=== PATIENT | female | born 1930 | race Caucasian/White ===

== ENCOUNTER 2017-02-24 06:19 | Inpatient (IN) | payer MEDICARE, MEDICAID ==
[~2017-02-24] VITALS: Ht 154.9 cm; Wt 80.7 kg
[~2017-02-24 06:19] MED LIST: ACET500T68 PO; ALIS150T PO; AMLO1CAP12 PO; CALC600T4 PO; ESTR0.3T PO; FENO145T2 PO; HYDR12.58 PO; METO100T11 PO; OMEG300C PO; TRAM50TA PO
[2017-02-24] MEDS ORDERED: IV NORMAL SALINE 1000ML BAG 1,000 ML IV ONE (06:45)
[2017-02-24 07:11] LABS: BASO # 0.1 x10^3/uL (0.0-0.2); BASO % 1 % (0-3); EOS % 3 % (0-3); HEMATOCRIT 43.9 % (36.0-47.0); HEMOGLOBIN 14.5 g/dL (12.0-15.5); LYMPH # 2.6 x10^3/uL (1.0-4.8); LYMPH % 35 % (24-48); MEAN CORPUSCULAR HEMOGLOBIN 30 pg (25-35); MEAN CORPUSCULAR HGB CONC 33 g/dL (31-37); MEAN CORPUSCULAR VOLUME 90 fL (79-100); MONO % 6 % (0-9); NEUT % 55 % (31-73); PLATELET COUNT 218 x10^3/uL (140-400); RED CELL DISTRIBUTION WIDTH 13.4 % (11.5-14.5); WHITE BLOOD COUNT 7.5 x10^3/uL (4.0-11.0)
[2017-02-24 07:28] LABS: CALCIUM 9.4 mg/dL (8.5-10.1); CREATININE 1.5 mg/dL (0.6-1.0); POTASSIUM 3.1 mmol/L (3.5-5.1)
[2017-02-24 07:34] LABS: ALBUMIN 3.7 g/dL (3.4-5.0); ALBUMIN/GLOBULIN RATIO 1.3 (1.0-1.7); ETHANOL < 10 mg/dL (0-10); MAGNESIUM 2.3 mg/dL (1.8-2.4); TOTAL BILIRUBIN 0.4 mg/dL (0.2-1.0); TOTAL PROTEIN 6.5 g/dL (6.4-8.2)
--- NOTE | 2017-02-24 07:37 | RAD ---
CT brain without contrast. History: Altered mental status, possible seizure, history of seizures CT scan of brain was done without intravenous contrast. There is no intracranial hemorrhage or subdural hematoma. Ventricles are normal in size. There is no mass or shift of the midline. There is extensive decreased density in the white matter from chronic microvascular changes. An acute CVA is not identified. There is no mass or shift of the midline. Impression: 1. Chronic white matter changes. 2. No intracranial hemorrhage or acute CVA noted. One or more of the following individualized dose reduction techniques were utilized for this examination: 1. Automated exposure control 2. Adjustment of the mA and/or kV according to patient size 3. Use of iterative reconstruction technique
[2017-02-24 07:44] LABS: INR 1.1 (0.8-1.1); PROTHROMBIN TIME PATIENT 13.1 SEC (11.7-14.0)
[2017-02-24 08:01] LABS: BILIRUBIN,URINE NEGATIVE (NEG); GLUCOSE,URINE NEGATIVE (NEG); NITRITE,URINE NEGATIVE (NEG); PH,URINE 5.5; PROTEIN,URINE NEGATIVE (NEG-TRACE); UROBILINOGEN,URINE 0.2 mg/dL (0.2 mg/dL)
[2017-02-24 08:13] LABS: BACTERIA,URINE MANY /HPF (0-FEW); RBC,URINE 0 /HPF (0-2); SQUAMOUS EPITHELIAL CELL,UR MOD /LPF
[2017-02-24 08:21] LABS: BARBITURATES NEG (NEG); BENZODIAZEPINES NEG (NEG); CANNABINOIDS NEG (NEG); COCAINE NEG (NEG); METHADONE NEG (NEG); OPIATES NEG (NEG); PHENCYCLIDINE NEG (NEG)
[2017-02-24] MEDS ORDERED: fentaNYL PF VIAL 100 MCG/2 ML VIAL IV ONE (08:30)
[2017-02-24] MEDS ORDERED: POTASSIUM CHLORIDE 20 MEQ/15 ML ORAL LIQUID. PO ONE (08:45)
[2017-02-24] MEDS ORDERED: fentaNYL PF VIAL 100 MCG/2 ML VIAL IV PRN (08:45)
[2017-02-24] MEDS ORDERED: ACETAMINOPHEN 325 MG TABLET. PO PRN (08:45)
[2017-02-24] MEDS ORDERED: ONDANSETRON PF 4 MG/2 ML VIAL. IV PRN (08:45)
[2017-02-24 09:12] VITALS: BP 137/68
--- NOTE | 2017-02-24 09:48 | PHYS DOC ---
Past Medical History Past Medical History: Arthritis, High Cholesterol, Hypertension, Hepatitis, Seizure Additional Past Medical Histor: bursitis L hip, carpal tunnel, Hepatitis A -(40 -50 yrs ago) Past Surgical History: Hysterectomy, Knee Replacement, Other Additional Past Surgical Histo: R knee surgery x2,R)salivary gland removed Alcohol Use: None Drug Use: None Adult General Chief Complaint Chief Complaint: SEIZURE HPI HPI Patient is a 87 year old female who presents with altered mental status. Patient arrives by EMS from home. Patient unable to give history due to clinical condition. Family reported that they heard a noise from her bedroom which they thought was a seizure. They found her confused and minimally responsive and called 911. Patient arrives agitated, yelling "Let me go! Let me go!" History of seizure in 2003 and does not take seizure medication. She remained in her bed with no known history of trauma. Review of Systems Review of Systems Unable to obtain due to clinical condition. Current Medications Current Medications Current Medications Medications (Trade) Dose Ordered Sig/Sunny Start Time Stop Time Status Last Admin Dose Admin Lorazepam (Ativan) 1 mg 1X ONCE 02/24/17 07:00 02/24/17 07:01 DC 02/24/17 06:21 1 MG Sodium Chloride 1,000 ml @ 1,000 mls/hr 1X ONCE 02/24/17 06:45 02/24/17 07:44 DC 02/24/17 06:45 1,000 MLS/HR Allergies Allergies Allergies Coded Allergies Type Severity Reaction Last Updated Verified No Known Drug Allergies 03/19/15 No Physical Exam Physical Exam Constitutional: Well developed, well nourished, agitated, shouting, trying to get off of gurney. HENT: Normocephalic, atraumatic, bilateral external ears normal, oropharynx moist, nose normal. Eyes: PERRLA, EOMI, conjunctiva normal, no discharge. Neck: supple, no stridor. no midline c-spine tenderness. Cardiovascular: tachycardic, regular, no murmurs, no edema. Lungs & Thorax: LCTAB, no wheezing, no respiratory distress. Abdomen: soft, nontender, nondistended. Skin: Warm, dry, no erythema, no rash. Back: No tenderness. Extremities: No tenderness, no edema. Neurologic: Alert, speaks in complete sentences but not answering questions so unable to assess orientation, moves all extremities but does not follow commands. Psychologic: agitated Current Patient Data Vital Signs Vital Signs Date Time Temp Pulse Resp B/P (MAP) Pulse Ox O2 Delivery O2 Flow Rate FiO2 02/24/17 07:32 79 18 137/62 (87) 93 Room Air 02/24/17 06:19 98.5 2.0 98.5 Lab Values Laboratory Tests Test 02/24/17 06:57 White Blood Count 7.5 x10^3/uL (4.0-11.0) Red Blood Count 4.90 x10^6/uL (3.50-5.40) Hemoglobin 14.5 g/dL (12.0-15.5) Hematocrit 43.9 % (36.0-47.0) Mean Corpuscular Volume 90 fL (79-100) Mean Corpuscular Hemoglobin 30 pg (25-35) Mean Corpuscular Hemoglobin Concent 33 g/dL (31-37) Red Cell Distribution Width 13.4 % (11.5-14.5) Platelet Count 218 x10^3/uL (140-400) Neutrophils (%) (Auto) 55 % (31-73) Lymphocytes (%) (Auto) 35 % (24-48) Monocytes (%) (Auto) 6 % (0-9) Eosinophils (%) (Auto) 3 % (0-3) Basophils (%) (Auto) 1 % (0-3) Neutrophils # (Auto) 4.1 x10^3uL (1.8-7.7) Lymphocytes # (Auto) 2.6 x10^3/uL (1.0-4.8) Monocytes # (Auto) 0.4 x10^3/uL (0.0-1.1) Eosinophils # (Auto) 0.2 x10^3/uL (0.0-0.7) Basophils # (Auto) 0.1 x10^3/uL (0.0-0.2) Prothrombin Time 13.1 SEC (11.7-14.0) Prothrombin Time INR 1.1 (0.8-1.1) PTT 25 SEC (24-38) Sodium Level 142 mmol/L (136-145) Potassium Level 3.1 mmol/L (3.5-5.1) L Chloride Level 103 mmol/L (98-107) Carbon Dioxide Level 23 mmol/L (21-32) Anion Gap 16 (6-14) H Blood Urea Nitrogen 28 mg/dL (7-20) H Creatinine 1.5 mg/dL (0.6-1.0) H Estimated GFR (Cockcroft-Gault) 33.0 BUN/Creatinine Ratio 19 (6-20) Glucose Level 166 mg/dL (70-99) H Lactic Acid Level 5.5 mmol/L (0.4-2.0) *H Calcium Level 9.4 mg/dL (8.5-10.1) Magnesium Level 2.3 mg/dL (1.8-2.4) Total Bilirubin 0.4 mg/dL (0.2-1.0) Aspartate Amino Transferase (AST) 25 U/L (15-37) Alanine Aminotransferase (ALT) 23 U/L (14-59) Alkaline Phosphatase 42 U/L (46-116) L Troponin I Quantitative < 0.017 ng/mL (0.000-0.055) XY-Cps-M-Type Natriuretic Peptide 162 pg/mL (0-449) Total Protein 6.5 g/dL (6.4-8.2) Albumin 3.7 g/dL (3.4-5.0) Albumin/Globulin Ratio 1.3 (1.0-1.7) Salicylates Level < 2.8 mg/dL (2.8-20.0) L Salicylate Last Dose Date Unknown Salicylate Last Dose Time Unknown Acetaminophen Level < 2 mcg/ml (10-30) L Acetaminophen Last Dose Date Unknown Acetaminophen Last Dose Time Unknown Ethyl Alcohol Level < 10 mg/dL (0-10) Laboratory Tests 02/24/17 06:57 Laboratory Tests 02/24/17 06:57 EKG EKG interpreted by me: NSR rate 88, no acute ST/T wave changes, NM prolonged 210 ms otherwise normal intervals, no ectopy.[] Radiology/Procedures Radiology/Procedures PROCEDURE: CT HEAD WO CONTRAST CT brain without contrast. History: Altered mental status, possible seizure, history of seizures CT scan of brain was done without intravenous contrast. There is no intracranial hemorrhage or subdural hematoma. Ventricles are normal in size. There is no mass or shift of the midline. There is extensive decreased density in the white matter from chronic microvascular changes. An acute CVA is not identified. There is no mass or shift of the midline. Impression: 1. Chronic white matter changes. 2. No intracranial hemorrhage or acute CVA noted. One or more of the following individualized dose reduction techniques were utilized for this examination: 1. Automated exposure control 2. Adjustment of the mA and/or kV according to patient size 3. Use of iterative reconstruction technique DICTATED and SIGNED BY: RAFAEL LEWIS MD DATE: 02/24/17 0732 [] Course & Med Decision Making Course & Med Decision Making Pertinent Labs and Imaging studies reviewed. (See chart for details) The patient presented with altered mental status. Initially quite agitated. Gave Ativan upon arrival and she became more calm, was able to answer questions and at that time had no neurologic deficits. Head CT showed chronic changes with no acute abnormality. Lactic acid elevated suggestive of seizure. I do think that her initial presentation is most likely postictal state. Reportedly she has history of seizure but never been diagnosed with epilepsy and not on medication. Initially tachycardic but afebrile with normal white blood cell count, heart rate improving to 80s after she became more calm. At this time does not appear to be sepsis/SIRS. We'll hold off on cultures or antibiotics at this time. Recommended admission to the hospital for further evaluation and treatment. The patient agreed with plan of care. Discussed with Dr. Bateman who agrees to admit to inpatient status on behalf of Dr. Beltrán. Patient admitted in stable condition. [] Dragon Disclaimer Dragon Disclaimer This electronic medical record was generated, in whole or in part, using a voice recognition dictation system. Departure Departure Impression: Primary Impression: Altered mental status Additional Impressions: Seizure Hypokalemia Lactic acidosis Disposition: ADMITTED INPATIENT Condition: STABLE Problem Qualifiers NORBERTO MARSH MD Feb 24, 2017 09:48
--- NOTE | 2017-02-24 10:39 | EKG ---
[facility] [address] [place] [address] Test Date: 2017-02-24 Test Time: 06:45:26 Pat Name: ALKA WEAVER Department: Room: Gender: F Clin Nurse: : 1930 Requested By: NORBERTO MARSH Order Number: [id number] Reading MD: Measurements Intervals [place] Rate: 88 P: 19 NE: 210 QRS: -9 QRSD: 90 T: 63 QT: 356 QTc: 434 Interpretive Statements SINUS RHYTHM PROLONGED NE INTERVAL LEFTWARD AXIS ABNORMAL ECG RI6.01 No previous ECG available for comparison
[2017-02-24 11:00] VITALS: BP 142/70
--- NOTE | 2017-02-24 11:19 | PDOC1 ---
History and Physical Date of Admission Date of Admission DATE: 02/24/17 TIME: 11:07 History of Present Illness History of Present Illness Patient comes in after being found down and confused by family. Patient has known history of seizures. Patient had ecchymotic area about left lip and right wrist. Patient which was somewhat combative and confused and EMS was called. Patient was transferred to the emergency room where she still had some confusion. She was found to have a high lactic acid with no evidence of infection. Findings were consistent with recurrent seizure disorder. Patient was admitted for observation and neurologic consultation. Patient also complains of leg swelling after med adjustment in the office several months ago. Patient does not know which medication this is. Patient is also taking tramadol and does have a history of taking Cymbalta as well which may have decreased her seizure threshold. On my evaluation patient is back to baseline and able to converse and answer questions appropriately. Patient was reviewed with daughter in room. Patient's overriding complaint is right knee pain and patient is requesting pain medication. Past Medical History Past Medical History Hypertension Seizure Osteoarthritis Chronic kidney disease Chronic pain left knee Hyperlipidemia Past Surgical History Past Surgical History Hysterectomy. Total right knee arthroplasty 2011 with revision. Family History Family History Mother is with history of hypertension Father is with history of heart disease. Social History Smoke: No ALCOHOL: none Current Problem List Problem List Problems Medical Problems: (1) Altered mental status Status: Acute (2) Hypokalemia Status: Acute (3) Lactic acidosis Status: Acute (4) Seizure Status: Acute Problems: Current Medications Current Medications Home meds from chart:. Lotrel's 06/01 one daily. Calcium with vitamin D 600/203 times daily. Hydrochlorothiazide 25 mg daily. Toprol-XL 100 mg daily. Premarin 0.3 mg daily. Tekturna 150 mg daily. Tramadol 50 mg every 6 hours when necessary. TriCor 145 mg daily. Current Medications Sodium Chloride 1,000 ml @ 1,000 mls/hr 1X ONCE IV Last administered on 06:45; Start 02/24/17 at 06:45; Stop 02/24/17 at 07:44; Status DC Lorazepam (Ativan) 1 mg 1X ONCE IV Last administered on 02/24/17 06:21; Start 02/24/17 at 07:00; Stop 02/24/17 at 07:01; Status DC Fentanyl Citrate (Fentanyl 2ml Vial) 25 mcg 1X ONCE IV Last administered on 08:28; Start 02/24/17 at 08:30; Stop 02/24/17 at 08:31; Status DC Ondansetron HCl (Zofran) 4 mg PRN Q8HRS PRN IV NAUSEA/VOMITING; Start 02/24/17 at 08:45; Stop 02/25/17 at 08:44 Fentanyl Citrate (Fentanyl 2ml Vial) 25 mcg PRN Q2HR PRN IV PAIN Last administered on 02/24/17 09:18; Start 02/24/17 at 08:45; Stop 02/25/17 at 08:44 Acetaminophen (Tylenol) 650 mg PRN Q4HRS PRN PO FEVER; Start 02/24/17 at 08:45 ; Stop 02/25/17 at 08:44 Potassium Chloride (KCl Oral Soln) 40 meq 1X ONCE PO ; Start 02/24/17 at 08:45 ; Stop 02/24/17 at 08:52; Status DC Acetaminophen (Tylenol) 500 mg Q6HRS PO ; Start 02/24/17 at 12:00; Status UNV Aliskiren (Tekturna) 150 mg DAILY PO ; Start 02/25/17 at 09:00; Status UNV Estrogens Conjugated (Premarin) 0.3 mg DAILY PO ; Start 02/25/17 at 09:00; Status UNV Metoprolol Succinate (Toprol Xl) 100 mg DAILY PO ; Start 02/25/17 at 09:00; Status UNV Amlodipine Besylate (Norvasc) 5 mg DAILY PO ; Start 02/25/17 at 09:00; Status UNV Fenofibrate (Lofibra) 134 mg DAILY PO ; Start 02/25/17 at 09:00; Status UNV Hydrochlorothiazide (Microzide) 12.5 mg DAILY PO ; Start 02/25/17 at 09:00; Status UNV Fish Oil (Fish Oil) 1,000 mg DAILY PO ; Start 02/25/17 at 09:00; Status UNV Oxycodone HCl (Roxicodone) 5 mg PRN Q6HRS PRN PO PAIN; Start 02/24/17 at 11:15 ; Status UNV Active Scripts Active Acetaminophen 500 Mg Tablet 1 Tab PO Q6HRS 42 Days n/a Reported Tekturna (Aliskiren Hemifumarate) 150 Mg Tablet 1 Tab PO DAILY Calcium (Calcium Carbonate) 600 Mg Tablet 600 Mg PO Hydrochlorothiazide Tablet (Hydrochlorothiazide) 12.5 Mg Tablet 25 Mg PO Fish Oil (Pine-3 Fatty Acids) 300 Mg Capsule Unknown Dose PO Tekturna (Aliskiren Hemifumarate) 150 Mg Tablet Unknown Dose PO Fenofibrate (Fenofibrate Nanocrystallized) 145 Mg Tablet 145 Mg PO Metoprolol Succinate ( Xl ) (Metoprolol Succinate) 100 Mg Tab.er.24h 100 Mg PO Amlodipine-Benazepril 10-20 Mg (Amlodipine Besylate/Benazepril) 1 Each Capsule 1 Each PO uknown dose Premarin (Estrogens, Conjugated) 0.3 Mg Tablet 0.3 Mg PO Allergies Allergies: Coded Allergies: No Known Drug Allergies (Unverified , 03/19/15) ROS Review of System Patient denies cough congestion fever chills nausea vomiting or diarrhea. She does have intermittent constipation. Patient was in usual state of health until recent suspected seizure. Patient has chronic right knee pain and current left wrist ecchymosis Musculoskeletal: Yes Other Physical Exam Physical Exam Patient is alert and oriented excellent HEENT benign except for mild ecchymosis about left lower lip. Neck: supple without JVD bruit. Heart exam: Regular rate and rhythm without murmur. Lung exam: Clear to auscultation. Abdominal exam: Soft nontender without masses. Extremities: show ecchymosis to left wrist tenderness with range of motion and palpation of right knee. Neuro exam shows no unilateral findings on my limited exam. Vitals Vitals Vital Signs Date Time Temp Pulse Resp B/P (MAP) Pulse Ox O2 Delivery O2 Flow Rate FiO2 02/24/17 10:37 Room Air 02/24/17 09:18 93 2.0 02/24/17 09:12 98.1 80 16 137/68 (91) 98.1 Labs Labs Laboratory Tests Test 02/24/17 06:57 02/24/17 07:45 White Blood Count 7.5 x10^3/uL (4.0-11.0) Red Blood Count 4.90 x10^6/uL (3.50-5.40) Hemoglobin 14.5 g/dL (12.0-15.5) Hematocrit 43.9 % (36.0-47.0) Mean Corpuscular Volume 90 fL (79-100) Mean Corpuscular Hemoglobin 30 pg (25-35) Mean Corpuscular Hemoglobin Concent 33 g/dL (31-37) Red Cell Distribution Width 13.4 % (11.5-14.5) Platelet Count 218 x10^3/uL (140-400) Neutrophils (%) (Auto) 55 % (31-73) Lymphocytes (%) (Auto) 35 % (24-48) Monocytes (%) (Auto) 6 % (0-9) Eosinophils (%) (Auto) 3 % (0-3) Basophils (%) (Auto) 1 % (0-3) Neutrophils # (Auto) 4.1 x10^3uL (1.8-7.7) Lymphocytes # (Auto) 2.6 x10^3/uL (1.0-4.8) Monocytes # (Auto) 0.4 x10^3/uL (0.0-1.1) Eosinophils # (Auto) 0.2 x10^3/uL (0.0-0.7) Basophils # (Auto) 0.1 x10^3/uL (0.0-0.2) Prothrombin Time 13.1 SEC (11.7-14.0) Prothromb Time International Ratio 1.1 (0.8-1.1) Activated Partial Thromboplast Time 25 SEC (24-38) Sodium Level 142 mmol/L (136-145) Potassium Level 3.1 mmol/L (3.5-5.1) Chloride Level 103 mmol/L (98-107) Carbon Dioxide Level 23 mmol/L (21-32) Anion Gap 16 (6-14) Blood Urea Nitrogen 28 mg/dL (7-20) Creatinine 1.5 mg/dL (0.6-1.0) Estimated GFR (Cockcroft-Gault) 33.0 BUN/Creatinine Ratio 19 (6-20) Glucose Level 166 mg/dL (70-99) Lactic Acid Level 5.5 mmol/L (0.4-2.0) Calcium Level 9.4 mg/dL (8.5-10.1) Magnesium Level 2.3 mg/dL (1.8-2.4) Total Bilirubin 0.4 mg/dL (0.2-1.0) Aspartate Amino Transf (AST/SGOT) 25 U/L (15-37) Alanine Aminotransferase (ALT/SGPT) 23 U/L (14-59) Alkaline Phosphatase 42 U/L (46-116) Troponin I Quantitative < 0.017 ng/mL (0.000-0.055) PX-Lct-Z-Type Natriuretic Peptide 162 pg/mL (0-449) Total Protein 6.5 g/dL (6.4-8.2) Albumin 3.7 g/dL (3.4-5.0) Albumin/Globulin Ratio 1.3 (1.0-1.7) Salicylates Level < 2.8 mg/dL (2.8-20.0) Salicylate Last Dose Date Unknown Salicylate Last Dose Time Unknown Acetaminophen Level < 2 mcg/ml (10-30) Acetaminophen Last Dose Date Unknown Acetaminophen Last Dose Time Unknown Ethyl Alcohol Level < 10 mg/dL (0-10) Urine Collection Type U cath Urine Color Yellow Urine Clarity Clear Urine pH 5.5 Urine Specific [place] 1.020 Urine Protein Negative mg/dL (NEG-TRACE) Urine Glucose (UA) Negative mg/dL (NEG) Urine Ketones (Stick) Negative mg/dL (NEG) Urine Blood Negative (NEG) Urine Nitrite Negative (NEG) Urine Bilirubin Negative (NEG) Urine Urobilinogen Dipstick 0.2 mg/dL (0.2 mg/dL) Urine Leukocyte Esterase Negative (NEG) Urine RBC 0 /HPF (0-2) Urine WBC 1-4 /HPF (0-4) Urine Squamous Epithelial Cells Mod /LPF Urine Bacteria Many /HPF (0-FEW) Urine Hyaline Casts Moderate /HPF Urine Opiates Screen Neg (NEG) Urine Methadone Screen Neg (NEG) Urine Barbiturates Neg (NEG) Urine Phencyclidine Screen Neg (NEG) Urine Amphetamine/Methamphetamine Neg (NEG) Urine Benzodiazepines Screen Neg (NEG) Urine Cocaine Screen Neg (NEG) Urine Cannabinoids Screen Neg (NEG) Urine Ethyl Alcohol Neg (NEG) Laboratory Tests Test 02/24/17 06:57 02/24/17 07:45 White Blood Count 7.5 x10^3/uL (4.0-11.0) Red Blood Count 4.90 x10^6/uL (3.50-5.40) Hemoglobin 14.5 g/dL (12.0-15.5) Hematocrit 43.9 % (36.0-47.0) Mean Corpuscular Volume 90 fL (79-100) Mean Corpuscular Hemoglobin 30 pg (25-35) Mean Corpuscular Hemoglobin Concent 33 g/dL (31-37) Red Cell Distribution Width 13.4 % (11.5-14.5) Platelet Count 218 x10^3/uL (140-400) Neutrophils (%) (Auto) 55 % (31-73) Lymphocytes (%) (Auto) 35 % (24-48) Monocytes (%) (Auto) 6 % (0-9) Eosinophils (%) (Auto) 3 % (0-3) Basophils (%) (Auto) 1 % (0-3) Neutrophils # (Auto) 4.1 x10^3uL (1.8-7.7) Lymphocytes # (Auto) 2.6 x10^3/uL (1.0-4.8) Monocytes # (Auto) 0.4 x10^3/uL (0.0-1.1) Eosinophils # (Auto) 0.2 x10^3/uL (0.0-0.7) Basophils # (Auto) 0.1 x10^3/uL (0.0-0.2) Prothrombin Time 13.1 SEC (11.7-14.0) Prothromb Time International Ratio 1.1 (0.8-1.1) Activated Partial Thromboplast Time 25 SEC (24-38) Sodium Level 142 mmol/L (136-145) Potassium Level 3.1 mmol/L (3.5-5.1) Chloride Level 103 mmol/L (98-107) Carbon Dioxide Level 23 mmol/L (21-32) Anion Gap 16 (6-14) Blood Urea Nitrogen 28 mg/dL (7-20) Creatinine 1.5 mg/dL (0.6-1.0) Estimated GFR (Cockcroft-Gault) 33.0 BUN/Creatinine Ratio 19 (6-20) Glucose Level 166 mg/dL (70-99) Lactic Acid Level 5.5 mmol/L (0.4-2.0) Calcium Level 9.4 mg/dL (8.5-10.1) Magnesium Level 2.3 mg/dL (1.8-2.4) Total Bilirubin 0.4 mg/dL (0.2-1.0) Aspartate Amino Transf (AST/SGOT) 25 U/L (15-37) Alanine Aminotransferase (ALT/SGPT) 23 U/L (14-59) Alkaline Phosphatase 42 U/L (46-116) Troponin I Quantitative < 0.017 ng/mL (0.000-0.055) AX-Xog-L-Type Natriuretic Peptide 162 pg/mL (0-449) Total Protein 6.5 g/dL (6.4-8.2) Albumin 3.7 g/dL (3.4-5.0) Albumin/Globulin Ratio 1.3 (1.0-1.7) Salicylates Level < 2.8 mg/dL (2.8-20.0) Salicylate Last Dose Date Unknown Salicylate Last Dose Time Unknown Acetaminophen Level < 2 mcg/ml (10-30) Acetaminophen Last Dose Date Unknown Acetaminophen Last Dose Time Unknown Ethyl Alcohol Level < 10 mg/dL (0-10) Urine Collection Type U cath Urine Color Yellow Urine Clarity Clear Urine pH 5.5 Urine Specific [place] 1.020 Urine Protein Negative mg/dL (NEG-TRACE) Urine Glucose (UA) Negative mg/dL (NEG) Urine Ketones (Stick) Negative mg/dL (NEG) Urine Blood Negative (NEG) Urine Nitrite Negative (NEG) Urine Bilirubin Negative (NEG) Urine Urobilinogen Dipstick 0.2 mg/dL (0.2 mg/dL) Urine Leukocyte Esterase Negative (NEG) Urine RBC 0 /HPF (0-2) Urine WBC 1-4 /HPF (0-4) Urine Squamous Epithelial Cells Mod /LPF Urine Bacteria Many /HPF (0-FEW) Urine Hyaline Casts Moderate /HPF Urine Opiates Screen Neg (NEG) Urine Methadone Screen Neg (NEG) Urine Barbiturates Neg (NEG) Urine Phencyclidine Screen Neg (NEG) Urine Amphetamine/Methamphetamine Neg (NEG) Urine Benzodiazepines Screen Neg (NEG) Urine Cocaine Screen Neg (NEG) Urine Cannabinoids Screen Neg (NEG) Urine Ethyl Alcohol Neg (NEG) VTE Prophylaxis Ordered VTE Prophylaxis Devices: Yes VTE Pharmacological Prophylaxi: Yes Assessment/Plan Assessment/Plan Assessment Primary recurrent seizure. Post ictal encephalopathy/delirium Severe hypertension Osteoarthritis with chronic pain History of chronic kidney disease Hyperlipidemia Plan Proceed with neurologic consultation. Proceed with PT and OT modalities. Discontinue tramadol and start low-dose oxycodone Decrease dose of Norvasc due to leg swelling Discontinue lisinopril/benazepril while on DANIELLE Hilario MD Feb 24, 2017 11:19
[2017-02-24] MEDS ORDERED: AMLO1CAP15 PO (11:23)
[2017-02-24] MEDS: ALISKIREN HEMIFUMARATE 150 MG TABLET. PO SCH (12:12)
[2017-02-24] MEDS: oxyCODONE IR 5 MG TABLET PO PRN ×2 (12:12→23:13)
[2017-02-24] MEDS: OMEGA-3 FATTY ACIDS/FISH OIL 1,000 MG CAPSULE. PO SCH (12:13)
[2017-02-24] MEDS: amLODIPine BESYLATE 5 MG TABLET PO SCH (12:13)
[2017-02-24] MEDS: ACETAMINOPHEN 500 MG TABLET PO SCH ×3 (12:14→23:16)
[2017-02-24] MEDS: hydroCHLOROthiazide 12.5 MG CAPSULE PO SCH (12:14)
[2017-02-24] MEDS: METOPROLOL SUCC 24HR ER 100 MG TAB.ER.24H. PO SCH (12:14)
[2017-02-24] MEDS: FENOFIBRATE,MICRONIZED 134 MG CAPSULE PO SCH (12:14)
[2017-02-24] MEDS: ESTROGENS, CONJUGATED 0.3 MG TABLET PO SCH (12:14)
[2017-02-24] MEDS: ENOXAPARIN 30 MG/0.3 ML SYRINGE. SQ SCH (12:15)
[2017-02-24 15:00] VITALS: BP 147/72
[2017-02-24] MEDS: levETIRAcetam 500 MG TABLET PO SCH (15:51)
--- NOTE | 2017-02-24 16:31 | PDOC2 ---
CONSULT Date of Consult Date of Consult DATE: 02/24/17 TIME: 16:28 Reason for Consult Reason for Consult: Seizures History of Present Illness Reason for Visit: This patient is a 87-year-old female who presented to emergency room with episodes of generalized jerking in her extremities, tongue bite. Patient's family at bedside patient's son report she was having jerky activity in all extremities shouldn't had tongue bite, patient was confused. Patient does not have any loss of bladder or bowel control. Patient does have a history of seizures before. Patient was tapered off of the seizure medication. Patient does not have all the details. And was also taking tramadol for pains. Recurrent generalized seizures. CT scan on the brain showed chronic white matter changes. There was no intracranial hemorrhage. There was no acute process noted. Social History No ALCOHOL: none Current Problem List Problem List Problems Medical Problems: (1) Altered mental status Status: Acute (2) Hypokalemia Status: Acute (3) Lactic acidosis Status: Acute (4) Seizure Status: Acute Current Medications Current Medications Current Medications Sodium Chloride 1,000 ml @ 1,000 mls/hr 1X ONCE IV Last administered on 06:45; Start 02/24/17 at 06:45; Stop 02/24/17 at 07:44; Status DC Lorazepam (Ativan) 1 mg 1X ONCE IV Last administered on 02/24/17 06:21; Start 02/24/17 at 07:00; Stop 02/24/17 at 07:01; Status DC Fentanyl Citrate (Fentanyl 2ml Vial) 25 mcg 1X ONCE IV Last administered on 08:28; Start 02/24/17 at 08:30; Stop 02/24/17 at 08:31; Status DC Ondansetron HCl (Zofran) 4 mg PRN Q8HRS PRN IV NAUSEA/VOMITING; Start 02/24/17 at 08:45; Stop 02/25/17 at 08:44 Fentanyl Citrate (Fentanyl 2ml Vial) 25 mcg PRN Q2HR PRN IV PAIN Last administered on 02/24/17 09:18; Start 02/24/17 at 08:45; Stop 02/25/17 at 08:44 Acetaminophen (Tylenol) 650 mg PRN Q4HRS PRN PO FEVER; Start 02/24/17 at 08:45 ; Stop 02/25/17 at 08:44 Potassium Chloride (KCl Oral Soln) 40 meq 1X ONCE PO Last administered on 02/24 12:15; Start 02/24/17 at 08:45; Stop 02/24/17 at 08:52; Status DC Acetaminophen (Tylenol) 500 mg Q6HRS PO Last administered on 02/24/17 12:14; Start 02/24/17 at 12:00 Aliskiren (Tekturna) 150 mg DAILY PO Last administered on 02/24/17 12:12; Start 02/24/17 at 12:00 Estrogens Conjugated (Premarin) 0.3 mg DAILY PO Last administered on 02/24/17 12:14; Start 02/24/17 at 11:15 Metoprolol Succinate (Toprol Xl) 100 mg DAILY PO Last administered on 12:14; Start 02/24/17 at 11:15 Amlodipine Besylate (Norvasc) 5 mg DAILY PO Last administered on 02/24/17 12: 13; Start 02/24/17 at 11:11 Fenofibrate (Lofibra) 134 mg DAILY PO Last administered on 02/24/17 12:14; Start 02/24/17 at 11:15 Hydrochlorothiazide (Microzide) 12.5 mg DAILY PO Last administered on 12:14; Start 02/24/17 at 11:15 Fish Oil (Fish Oil) 1,000 mg DAILY PO Last administered on 02/24/17 12:13; Start 02/24/17 at 11:15 Oxycodone HCl (Roxicodone) 5 mg PRN Q6HRS PRN PO PAIN Last administered on 02/24 12:12; Start 02/24/17 at 11:15 Enoxaparin Sodium (Lovenox 30mg Syringe) 30 mg Q24H SQ Last administered on 12:15; Start 02/24/17 at 12:00 Levetiracetam (Keppra) 500 mg BID PO Last administered on 02/24/17 15:51; Start 02/24/17 at 16:00 Active Scripts Active Acetaminophen 500 Mg Tablet 1 Tab PO Q6HRS 42 Days n/a Reported Amlodipine-Benazepril 10-40 Mg (Amlodipine Besylate/Benazepril) 1 Each Capsule 1 Cap PO DAILY Tekturna (Aliskiren Hemifumarate) 150 Mg Tablet 1 Tab PO DAILY Calcium (Calcium Carbonate) 600 Mg Tablet 600 Mg PO Hydrochlorothiazide Tablet (Hydrochlorothiazide) 12.5 Mg Tablet 25 Mg PO Tekturna (Aliskiren Hemifumarate) 150 Mg Tablet Unknown Dose PO Fenofibrate (Fenofibrate Nanocrystallized) 145 Mg Tablet 145 Mg PO Metoprolol Succinate ( Xl ) (Metoprolol Succinate) 100 Mg Tab.er.24h 100 Mg PO Premarin (Estrogens, Conjugated) 0.3 Mg Tablet 0.3 Mg PO Allergies Allergies: Coded Allergies: No Known Drug Allergies (Unverified , 03/19/15) Physical Exam Physical Exam REVIEW OF SYSTEMS: Otherwise, not [id number] review of systems. PHYSICAL EXAMINATION: General appearance is in acute distress. HEENT: Normocephalic Eyes, nose, ears, and throat are unremarkable. tongue bite + Neck is supple. No lymphadenopathy. No crepitus. Cardiovascular: S1, S2, regular rate and rhythm. Pulmonary: Clear to auscultation bilaterally. Abdomen: Bowel sounds are positive. Abdomen is soft, nontender Extremities: No rash, lesions, or edema. No restriction of range of motion NEUROLOGICAL EXAMINATION: Alert Oriented to time, place and person. PERRL. EOMI. CN: no focal findings. Muscle tone: within normal. Muscle strength:good DTR: 1- 2 Plantar reflex: Flexor response bilaterally Gait: not examined in bed. Sensory exam: no abnormal findings. No obvious cerebellar signs elicited. Vitals VITALS Vital Signs Date Time Temp Pulse Resp B/P (MAP) Pulse Ox O2 Delivery O2 Flow Rate FiO2 02/24/17 15:00 98.9 76 16 147/72 (97) 99 98.9 02/24/17 13:30 Room Air 2.0 Labs Labs Laboratory Tests Test 02/24/17 06:57 02/24/17 07:45 White Blood Count 7.5 x10^3/uL (4.0-11.0) Red Blood Count 4.90 x10^6/uL (3.50-5.40) Hemoglobin 14.5 g/dL (12.0-15.5) Hematocrit 43.9 % (36.0-47.0) Mean Corpuscular Volume 90 fL (79-100) Mean Corpuscular Hemoglobin 30 pg (25-35) Mean Corpuscular Hemoglobin Concent 33 g/dL (31-37) Red Cell Distribution Width 13.4 % (11.5-14.5) Platelet Count 218 x10^3/uL (140-400) Neutrophils (%) (Auto) 55 % (31-73) Lymphocytes (%) (Auto) 35 % (24-48) Monocytes (%) (Auto) 6 % (0-9) Eosinophils (%) (Auto) 3 % (0-3) Basophils (%) (Auto) 1 % (0-3) Neutrophils # (Auto) 4.1 x10^3uL (1.8-7.7) Lymphocytes # (Auto) 2.6 x10^3/uL (1.0-4.8) Monocytes # (Auto) 0.4 x10^3/uL (0.0-1.1) Eosinophils # (Auto) 0.2 x10^3/uL (0.0-0.7) Basophils # (Auto) 0.1 x10^3/uL (0.0-0.2) Prothrombin Time 13.1 SEC (11.7-14.0) Prothromb Time International Ratio 1.1 (0.8-1.1) Activated Partial Thromboplast Time 25 SEC (24-38) Sodium Level 142 mmol/L (136-145) Potassium Level 3.1 mmol/L (3.5-5.1) Chloride Level 103 mmol/L (98-107) Carbon Dioxide Level 23 mmol/L (21-32) Anion Gap 16 (6-14) Blood Urea Nitrogen 28 mg/dL (7-20) Creatinine 1.5 mg/dL (0.6-1.0) Estimated GFR (Cockcroft-Gault) 33.0 BUN/Creatinine Ratio 19 (6-20) Glucose Level 166 mg/dL (70-99) Lactic Acid Level 5.5 mmol/L (0.4-2.0) Calcium Level 9.4 mg/dL (8.5-10.1) Magnesium Level 2.3 mg/dL (1.8-2.4) Total Bilirubin 0.4 mg/dL (0.2-1.0) Aspartate Amino Transf (AST/SGOT) 25 U/L (15-37) Alanine Aminotransferase (ALT/SGPT) 23 U/L (14-59) Alkaline Phosphatase 42 U/L (46-116) Troponin I Quantitative < 0.017 ng/mL (0.000-0.055) [id number]-Type Natriuretic Peptide 162 pg/mL (0-449) Total Protein 6.5 g/dL (6.4-8.2) Albumin 3.7 g/dL (3.4-5.0) Albumin/Globulin Ratio 1.3 (1.0-1.7) Salicylates Level < 2.8 mg/dL (2.8-20.0) Salicylate Last Dose Date Unknown Salicylate Last Dose Time Unknown Acetaminophen Level < 2 mcg/ml (10-30) Acetaminophen Last Dose Date Unknown Acetaminophen Last Dose Time Unknown Ethyl Alcohol Level < 10 mg/dL (0-10) Urine Collection Type U cath Urine Color Yellow Urine Clarity Clear Urine pH 5.5 Urine Specific Bowler 1.020 Urine Protein Negative mg/dL (NEG-TRACE) Urine Glucose (UA) Negative mg/dL (NEG) Urine Ketones (Stick) Negative mg/dL (NEG) Urine Blood Negative (NEG) Urine Nitrite Negative (NEG) Urine Bilirubin Negative (NEG) Urine Urobilinogen Dipstick 0.2 mg/dL (0.2 mg/dL) Urine Leukocyte Esterase Negative (NEG) Urine RBC 0 /HPF (0-2) Urine WBC 1-4 /HPF (0-4) Urine Squamous Epithelial Cells Mod /LPF Urine Bacteria Many /HPF (0-FEW) Urine Hyaline Casts Moderate /HPF Urine Opiates Screen Neg (NEG) Urine Methadone Screen Neg (NEG) Urine Barbiturates Neg (NEG) Urine Phencyclidine Screen Neg (NEG) Urine Amphetamine/Methamphetamine Neg (NEG) Urine Benzodiazepines Screen Neg (NEG) Urine Cocaine Screen Neg (NEG) Urine Cannabinoids Screen Neg (NEG) Urine Ethyl Alcohol Neg (NEG) Laboratory Tests Test 02/24/17 06:57 02/24/17 07:45 White Blood Count 7.5 x10^3/uL (4.0-11.0) Red Blood Count 4.90 x10^6/uL (3.50-5.40) Hemoglobin 14.5 g/dL (12.0-15.5) Hematocrit 43.9 % (36.0-47.0) Mean Corpuscular Volume 90 fL (79-100) Mean Corpuscular Hemoglobin 30 pg (25-35) Mean Corpuscular Hemoglobin Concent 33 g/dL (31-37) Red Cell Distribution Width 13.4 % (11.5-14.5) Platelet Count 218 x10^3/uL (140-400) Neutrophils (%) (Auto) 55 % (31-73) Lymphocytes (%) (Auto) 35 % (24-48) Monocytes (%) (Auto) 6 % (0-9) Eosinophils (%) (Auto) 3 % (0-3) Basophils (%) (Auto) 1 % (0-3) Neutrophils # (Auto) 4.1 x10^3uL (1.8-7.7) Lymphocytes # (Auto) 2.6 x10^3/uL (1.0-4.8) Monocytes # (Auto) 0.4 x10^3/uL (0.0-1.1) Eosinophils # (Auto) 0.2 x10^3/uL (0.0-0.7) Basophils # (Auto) 0.1 x10^3/uL (0.0-0.2) Prothrombin Time 13.1 SEC (11.7-14.0) Prothromb Time International Ratio 1.1 (0.8-1.1) Activated Partial Thromboplast Time 25 SEC (24-38) Sodium Level 142 mmol/L (136-145) Potassium Level 3.1 mmol/L (3.5-5.1) Chloride Level 103 mmol/L (98-107) Carbon Dioxide Level 23 mmol/L (21-32) Anion Gap 16 (6-14) Blood Urea Nitrogen 28 mg/dL (7-20) Creatinine 1.5 mg/dL (0.6-1.0) Estimated GFR (Cockcroft-Gault) 33.0 BUN/Creatinine Ratio 19 (6-20) Glucose Level 166 mg/dL (70-99) Lactic Acid Level 5.5 mmol/L (0.4-2.0) Calcium Level 9.4 mg/dL (8.5-10.1) Magnesium Level 2.3 mg/dL (1.8-2.4) Total Bilirubin 0.4 mg/dL (0.2-1.0) Aspartate Amino Transf (AST/SGOT) 25 U/L (15-37) Alanine Aminotransferase (ALT/SGPT) 23 U/L (14-59) Alkaline Phosphatase 42 U/L (46-116) Troponin I Quantitative < 0.017 ng/mL (0.000-0.055) EZ-[id number]-Type Natriuretic Peptide 162 pg/mL (0-449) Total Protein 6.5 g/dL (6.4-8.2) Albumin 3.7 g/dL (3.4-5.0) Albumin/Globulin Ratio 1.3 (1.0-1.7) Salicylates Level < 2.8 mg/dL (2.8-20.0) Salicylate Last Dose Date Unknown Salicylate Last Dose Time Unknown Acetaminophen Level < 2 mcg/ml (10-30) Acetaminophen Last Dose Date Unknown Acetaminophen Last Dose Time Unknown Ethyl Alcohol Level < 10 mg/dL (0-10) Urine Collection Type U cath Urine Color Yellow Urine Clarity Clear Urine pH 5.5 Urine Specific Bowler 1.020 Urine Protein Negative mg/dL (NEG-TRACE) Urine Glucose (UA) Negative mg/dL (NEG) Urine Ketones (Stick) Negative mg/dL (NEG) Urine Blood Negative (NEG) Urine Nitrite Negative (NEG) Urine Bilirubin Negative (NEG) Urine Urobilinogen Dipstick 0.2 mg/dL (0.2 mg/dL) Urine Leukocyte Esterase Negative (NEG) Urine RBC 0 /HPF (0-2) Urine WBC 1-4 /HPF (0-4) Urine Squamous Epithelial Cells Mod /LPF Urine Bacteria Many /HPF (0-FEW) Urine Hyaline Casts Moderate /HPF Urine Opiates Screen Neg (NEG) Urine Methadone Screen Neg (NEG) Urine Barbiturates Neg (NEG) Urine Phencyclidine Screen Neg (NEG) Urine Amphetamine/Methamphetamine Neg (NEG) Urine Benzodiazepines Screen Neg (NEG) Urine Cocaine Screen Neg (NEG) Urine Cannabinoids Screen Neg (NEG) Urine Ethyl Alcohol Neg (NEG) Assessment/Plan Assessment/Plan This patient is a 87-year-old female who presented to emergency room with episodes of generalized jerking in her extremities, tongue bite. Patient's family at bedside patient's son report she was having jerky activity in all extremities shouldn't had tongue bite, patient was confused. Patient does not have any loss of bladder or bowel control. Patient does have a history of seizures before. Patient was tapered off of the seizure medication. Patient does not have all the details. And was also taking tramadol for pains. Recurrent generalized seizures. CT scan on the brain showed chronic white matter changes. There was no intracranial hemorrhage. There was no acute process noted. We will check MRI brain with and without contrast to rule out any acute process. Will check for any infectious or metabolic etiology. Start Keppra 500 mg by mouth every 12 hr Seizure precautions discussed in detail. Discontinue tramadol. History of hypertension on medication History of arthritis EEG can also be done as outpatient. She will follow-up in neurology clinic. CINDY SMILEY MD Feb 24, 2017 16:31
[2017-02-24 19:59] VITALS: BP 120/66
[2017-02-24 23:54] VITALS: BP 143/56
--- NOTE | 2017-02-25 02:50 | ACF ---
Admission Forms Criteria MENTAL STATUS CHANGE Clinical Indications for Inpatient Care (Place 'X' for any and all applicable criteria): Ongoing inpatient care may be needed for 1 or more of the following(1)(2)(3)(5)( 6): [X ]I. Suspected serious etiology (eg, medical disorder, LEGAL TECHNICIAN event) of altered mental status [ ]II. Danger to self or others not manageable at lower level of care [ ]III. Grave disability (eg, inability to perform self care necessary at lower level of care) [ ]IV. Agitation or inappropriate behavior interfering with care for primary condition (eg, attempting to discontinue lines or drains prematurely, unable to cooperate with respiratory care) [ ]V. Delirium [A] [D][E] as described by 1 or more of the following(26): [ ]a) Delirium due to alcohol or sedative [F] withdrawal [ ]b) Delirium of uncertain etiology that has not responded to appropriate empiric treatment [ ]c) Delirium that prevents performance of a life-sustaining function (eg, feeding or hydrating oneself) [ ]. General contraindications and/or Inappropriate clinical situations for Observational Care in patients with Mental Status Change, when ANY ONE of the following is required: [ ]a) Prediction of prolongation of LOS based on ANY ONE of the following may be considered as a contraindication for observational care 2, 3, 4, 5, 6, 7, 8, 9, 10, 11 [ ]i) Age > 65 yrs. [ ]ii) Patient arriving by ambulance [ ]iii) Patient with high acuity [ ]iv) Patient requiring vital sign monitoring [ ]v) Patient on IV medication [ ]b) Systolic blood pressures greater than or equal to 180mmHg 3, 12 [ ]c) Patient with altered mental status including delirium and other alteration of consciousness, (3) [ ]d) Patient whose discharge disposition will be to a custodial home or rehabilitation home should not be managed in Emergency Department Observation Unit. CMS rule requires 3 days hospital stay before such placement.3,13 [ ]e) Patient with failure to thrive due to broad array of etiologies 3,16,17 [ ]f) Inability to ambulate 3,14 Extended stay beyond goal length of stay for the primary condition may be needed until ALL of the following are present(3)(5): [ ]a) Underlying medical etiology of mental status change is absent, or has been established and adequately treated [ ]b) Danger to self or others is absent or manageable at lower level of care. [ ]c) Behavior crisis management, including physical or chemical restraints, is not required or available at lower level of car [ ]d) Substance or alcohol withdrawal is absent or manageable at lower level of care. [ ]e) Behavioral symptoms (eg, agitation, somnolence, inappropriate behavior) are absent, or are manageable at lower level of care. The original [facility] content created by [facility] has been revised. The portions of the content which have been revised are identified through the use of italic text or in bold, and [facility] has neither reviewed nor approved the modified material. All other unmodified content is copyright [facility]. Please see references footnoted in the original [facility] edition 2016 Admission Criteria Met?: Yes JHON SARAH Feb 25, 2017 02:50
[2017-02-25 03:59] VITALS: BP 123/53
[2017-02-25 05:47] LABS: BASO % 1 % (0-3); EOS % 3 % (0-3); HEMATOCRIT 38.7 % (36.0-47.0); HEMOGLOBIN 13.1 g/dL (12.0-15.5); LYMPH # 2.5 x10^3/uL (1.0-4.8); LYMPH % 41 % (24-48); MEAN CORPUSCULAR HEMOGLOBIN 30 pg (25-35); MEAN CORPUSCULAR HGB CONC 34 g/dL (31-37); MEAN CORPUSCULAR VOLUME 88 fL (79-100); MONO % 9 % (0-9); NEUT % 47 % (31-73); PLATELET COUNT 204 x10^3/uL (140-400); RED BLOOD COUNT 4.42 x10^6/uL (3.50-5.40); RED CELL DISTRIBUTION WIDTH 13.4 % (11.5-14.5); WHITE BLOOD COUNT 6.1 x10^3/uL (4.0-11.0)
[2017-02-25] MEDS: ACETAMINOPHEN 500 MG TABLET PO SCH ×2 (06:00→11:47)
[2017-02-25 07:49] VITALS: BP 136/58
[2017-02-25] MEDS: ALISKIREN HEMIFUMARATE 150 MG TABLET. PO SCH (08:44)
[2017-02-25] MEDS: hydroCHLOROthiazide 12.5 MG CAPSULE PO SCH (08:44)
[2017-02-25] MEDS: ESTROGENS, CONJUGATED 0.3 MG TABLET PO SCH (08:45)
[2017-02-25] MEDS: FENOFIBRATE,MICRONIZED 134 MG CAPSULE PO SCH (08:45)
[2017-02-25] MEDS: amLODIPine BESYLATE 5 MG TABLET PO SCH (08:46)
[2017-02-25] MEDS: levETIRAcetam 500 MG TABLET PO SCH (08:46)
[2017-02-25] MEDS: METOPROLOL SUCC 24HR ER 100 MG TAB.ER.24H. PO SCH (08:46)
[2017-02-25] MEDS: OMEGA-3 FATTY ACIDS/FISH OIL 1,000 MG CAPSULE. PO SCH (08:47)
[2017-02-25 09:23] LABS: ALBUMIN 3.3 g/dL (3.4-5.0); ALBUMIN/GLOBULIN RATIO 1.5 (1.0-1.7); CALCIUM 8.1 mg/dL (8.5-10.1); CREATININE 1.4 mg/dL (0.6-1.0); GFR 35.7; TOTAL BILIRUBIN 0.5 mg/dL (0.2-1.0); TOTAL PROTEIN 5.5 g/dL (6.4-8.2)
[2017-02-25] MEDS ORDERED: OMEG1CAP6 PO (09:26)
[2017-02-25] MEDS ORDERED: LEVE500T56 PO (09:26)
[2017-02-25] MEDS ORDERED: AMLO5TAB2 PO (09:26)
[2017-02-25 10:14] VITALS: BP 123/57
[2017-02-25] MEDS: oxyCODONE IR 5 MG TABLET PO PRN ×2 (11:48→17:06)
[2017-02-25] MEDS: ENOXAPARIN 30 MG/0.3 ML SYRINGE. SQ SCH (12:00)
--- NOTE | 2017-02-25 12:03 | RAD ---
Portable AP chest. History: Altered mental status AP view was taken of the chest. Patient has not taken a deep inspiration. There are no confluent areas of infiltrate. Heart is normal in size. There is no effusion. Impression: 1. No acute infiltrates.
--- NOTE | 2017-02-25 16:15 | RAD ---
MRI Brain without contrast History: Altered mental status, history of seizures, seizure one day ago Technique: Multiplanar, multisequential noncontrast MR imaging was performed of the brain. Contrast: None Comparison: None Findings: There is motion degradation.There is no evidence of an acute infarct or cytotoxic edema. The ventricles, sulci, and cisterns are within normal limits in size and configuration. There is no significant midline shift, intra-axial mass effect, or focal abnormal extra-axial fluid collection. There is multifocal overall mild to moderate T2 and FLAIR hyperintense abnormality of the supratentorial white matter in a bilateral distribution. There is no significant hemosiderin deposition of the brain parenchyma. 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 There has been lens surgery bilaterally. There is mild patchy bilateral ethmoid air cell mucosal thickening. There is preservation of the major intracranial flow-voids at the skull base. The mastoid air cells are aerated. There is cerebellar tonsillar ectopia, projecting up to 5 to 6 mm inferior to the foramen magnum. There is no significant abnormality of the pineal gland or pituitary gland. There is preserved marrow signal of the clivus. Impression: 1. There is no evidence of a recent infarct or intracranial mass effect. There is cerebellar tonsillar ectopia. [id number] T2 and FLAIR hyperintense signal abnormality of the supratentorial white matter bilaterally is nonspecific although likely due to chronic microvascular ischemic disease in a patient of this age. Electronically signed by: Akhil Reina MD (02/25/2017 4:12 PM) [id number]
== END 2017-02-25 17:30 | disposition home or self-care (01) | DRG 101 ==
LOC: ER 06:19 → 6 SOUTH 07:42
PROVIDERS: ADMIT Family Medicine; ATTEND Family Medicine
DX: G40.409 Other generalized epilepsy and epileptic syndromes, not intractable, without status epilepticus (principal); E87.2 Acidosis; E87.6 Hypokalemia; E78.5 Hyperlipidemia, unspecified; E78.00 Pure hypercholesterolemia, unspecified; M25.562 Pain in left knee; Z96.651 Presence of right artificial knee joint; I12.9 Hypertensive chronic kidney disease with stage 1 through stage 4 chronic kidney disease, or unspecified chronic kidney disease; M19.90 Unspecified osteoarthritis, unspecified site; N18.9 Chronic kidney disease, unspecified; Z79.899 Other long term (current) drug therapy; Z82.49 Family history of ischemic heart disease and other diseases of the circulatory system; Z90.710 Acquired absence of both cervix and uterus
CPT/HCPCS: 36415; 70450; 70551; 71010; 80053; 80329; 81001; 83605; 83735; 83880; 84484; 85027; 85610; 85730; 87086; 87186; 93005; 96361; 96374; A6539; G0480; G0481; J1650; J2060; J3010; J7030; 99285-25

== ENCOUNTER 2017-03-12 09:56 | Emergency (ER) | payer MEDICARE, MEDICAID ==
[~2017-03-12] VITALS: Ht 154.9 cm; Wt 73.9 kg
[~2017-03-12 09:56] MED LIST changes: +AMLO1CAP15 PO; +AMLO5TAB2 PO; +LEVE500T56 PO; +OMEG1CAP6 PO
--- NOTE | 2017-03-12 10:15 | PHYS DOC ---
Past Medical History Past Medical History: Arthritis, High Cholesterol, Hypertension, Hepatitis, Seizure Additional Past Medical Histor: bursitis L hip, carpal tunnel, Hepatitis A -(40 -50 yrs ago) Past Surgical History: Hysterectomy, Knee Replacement, Other Additional Past Surgical Histo: R knee surgery x2,R)salivary gland removed Alcohol Use: None Drug Use: None Adult General Chief Complaint Chief Complaint: PAIN CONTROL HPI HPI Patient is a 87 year old female who presents with uncontrolled right leg pain. She states it started hurting approximately 20 days ago and she was taking tramadol and had a seizure and was hospitalized for it. She followed up with Dr. Beltrán and was given 50 tablets of 5 mg oxycodone instructed take one tablet twice a day. She states that she has been having to take more than directed and she ran out of 4 days ago and has taken Tylenol and some of her son 's oxycodone. She states the pain is constant is in the anterior aspect of her knee. She states she's had her knee replaced twice. She denies any shortness of breath fevers chills nausea or vomiting. She states that both legs are swollen this is normal for her for the last several months, but got worse overnight. Review of Systems Review of Systems Constitutional: Denies fever or chills [] Eyes: Denies change in visual acuity, redness, or eye pain [] HENT: Denies nasal congestion or sore throat [] Respiratory: Denies cough or shortness of breath [] Cardiovascular: No additional information not addressed in HPI [] GI: Denies abdominal pain, nausea, vomiting, bloody stools or diarrhea [] : Denies dysuria or hematuria [] Musculoskeletal: Denies back pain or joint pain [] Integument: Denies rash or skin lesions [] Neurologic: Denies headache, focal weakness or sensory changes [] Endocrine: Denies polyuria or polydipsia [] Allergies Allergies Allergies Coded Allergies Type Severity Reaction Last Updated Verified tramadol Adverse Reaction Intermediate seizure 03/12/17 Yes Physical Exam Physical Exam Constitutional: Well developed, well nourished, no acute distress, non-toxic appearance. [] HENT: Normocephalic, atraumatic, bilateral external ears normal, oropharynx moist, no oral exudates, nose normal. [] Eyes: PERRLA, EOMI, conjunctiva normal, no discharge. [] Neck: Normal range of motion, no tenderness, supple, no stridor. [] Cardiovascular:Heart rate regular rhythm, no murmur [] Lungs & Thorax: Bilateral breath sounds clear to auscultation [] Abdomen: Bowel sounds normal, soft, no tenderness, no masses, no pulsatile masses. [] Skin: Warm, dry, no erythema, no rash. [] Back: No tenderness, no CVA tenderness. [] Extremities: Tenderness to palpation around the right knee, no calf tenderness, 2+ bilateral lower show many edema no cyanosis, no clubbing, ROM intact. [] Neurologic: Alert and oriented X 3, normal motor function, normal sensory function, no focal deficits noted. [] Psychologic: Affect normal, judgement normal, mood normal. [] Current Patient Data Vital Signs Vital Signs Date Time Temp Pulse Resp B/P (MAP) Pulse Ox O2 Delivery O2 Flow Rate FiO2 03/12/17 11:00 68 66 03/12/17 10:00 97.9 18 187/84 (118) Room Air 97.9 Lab Values Laboratory Tests Test 03/12/17 11:05 03/12/17 11:22 Urine Collection Type Unknown Urine Color Yellow Urine Clarity Clear Urine pH 7.5 Urine Specific [place] 1.010 Urine Protein Negative mg/dL (NEG-TRACE) Urine Glucose (UA) Negative mg/dL (NEG) Urine Ketones (Stick) Negative mg/dL (NEG) Urine Blood Negative (NEG) Urine Nitrite Negative (NEG) Urine Bilirubin Negative (NEG) Urine Urobilinogen Dipstick 0.2 mg/dL (0.2 mg/dL) Urine Leukocyte Esterase Negative (NEG) Urine RBC Occ /HPF (0-2) Urine WBC 1-4 /HPF (0-4) Urine Squamous Epithelial Cells Few /LPF Urine Bacteria Few /HPF (0-FEW) White Blood Count 5.7 x10^3/uL (4.0-11.0) Red Blood Count 4.69 x10^6/uL (3.50-5.40) Hemoglobin 14.0 g/dL (12.0-15.5) Hematocrit 41.1 % (36.0-47.0) Mean Corpuscular Volume 88 fL (79-100) Mean Corpuscular Hemoglobin 30 pg (25-35) Mean Corpuscular Hemoglobin Concent 34 g/dL (31-37) Red Cell Distribution Width 13.5 % (11.5-14.5) Platelet Count 212 x10^3/uL (140-400) Neutrophils (%) (Auto) 52 % (31-73) Lymphocytes (%) (Auto) 35 % (24-48) Monocytes (%) (Auto) 9 % (0-9) Eosinophils (%) (Auto) 3 % (0-3) Basophils (%) (Auto) 1 % (0-3) Neutrophils # (Auto) 3.0 x10^3uL (1.8-7.7) Lymphocytes # (Auto) 2.0 x10^3/uL (1.0-4.8) Monocytes # (Auto) 0.5 x10^3/uL (0.0-1.1) Eosinophils # (Auto) 0.2 x10^3/uL (0.0-0.7) Basophils # (Auto) 0.1 x10^3/uL (0.0-0.2) Sodium Level 143 mmol/L (136-145) Potassium Level 4.2 mmol/L (3.5-5.1) Chloride Level 107 mmol/L (98-107) Carbon Dioxide Level 31 mmol/L (21-32) Anion Gap 5 (6-14) L Blood Urea Nitrogen 32 mg/dL (7-20) H Creatinine 1.4 mg/dL (0.6-1.0) H Estimated GFR (Cockcroft-Gault) 35.7 BUN/Creatinine Ratio 23 (6-20) H Glucose Level 109 mg/dL (70-99) H Calcium Level 8.6 mg/dL (8.5-10.1) Total Bilirubin 0.3 mg/dL (0.2-1.0) Aspartate Amino Transferase (AST) 25 U/L (15-37) Alanine Aminotransferase (ALT) 33 U/L (14-59) Alkaline Phosphatase 41 U/L (46-116) L AQ-Xfa-U-Type Natriuretic Peptide 162 pg/mL (0-449) Total Protein 6.7 g/dL (6.4-8.2) Albumin 3.7 g/dL (3.4-5.0) Albumin/Globulin Ratio 1.2 (1.0-1.7) Laboratory Tests 03/12/17 11:22 Laboratory Tests 03/12/17 11:22 EKG EKG [] Radiology/Procedures Radiology/Procedures [facility] [address] [address] IMAGING REPORT Signed PATIENT: ALKA WEAVER ACCOUNT: [id number] : 1930 LOCATION: ER AGE: 87 SEX: F EXAM STATUS: REG ER ORD. PHYSICIAN: BARBARA HASKINS MD REASON: swelling, pain PROCEDURE: VENOUS LOWER EXTREMITY RIGHT Right lower extremity venous ultrasound, 03/12/2017 : History: Right leg swelling Duplex evaluation including grayscale, color flow and spectral Doppler analysis was performed. The femoral and popliteal veins show no filling defects to suggest DVT. The visualized deep veins in the right calf are unremarkable. IMPRESSION: There is no sonographic evidence of deep vein thrombosis in the right lower extremity DICTATED and SIGNED BY: YOHANNES ZAMARRIPA MD DATE: 03/12/17 1110 CC: BARBARA HASKINS MD; Magdaleno BELTRÁN MD ~ Impressions: Right knee pain Course & Med Decision Making Course & Med Decision Making Pertinent Labs and Imaging studies reviewed. (See chart for details) I spoke with Dr. Beltrán regarding the patient's labs and ultrasound of the right lower extremity and he does not want her to have any additional narcotic pain medicines at this time it she's went through all of her pain meds sooner than expected and used her son's medication addition. She's being discharged with 5 day dose of prednisone. Patient's in stable condition at this time being discharged. Dragon Disclaimer Dragon Disclaimer This electronic medical record was generated, in whole or in part, using a voice recognition dictation system. Departure Departure Impression: Primary Impression: Knee pain Disposition: 01 HOME, SELF-CARE Referrals: Magdaleno BELTRÁN MD (PCP) Patient Instructions: Chronic Pain Additional Instructions: I spoke with Dr. Beltrán regarding your pain in your right knee and he does not want you to be on narcotic pain medicines anymore. Your being discharged with prednisone which is a medicine for inflammation and pain. You can take it as instructed for the next 4 days. If you develop fevers, worsening pain, or other concerns please return back to emergency department otherwise you need to follow -up with Dr. Beltrán for this chronic pain. Scripts Prednisone (PREDNISONE) 50 Mg Tablet 1 TAB PO DAILY, #4 TAB Prov: BARBARA HASKINS MD 03/12/17 Problem Qualifiers Primary Impression: Knee pain Chronicity: chronic Laterality: right Qualified Codes: M25.561 - Pain in right knee; G89.29 - Other chronic pain BARBARA HASKINS MD Mar 12, 2017 10:15
--- NOTE | 2017-03-12 11:13 | RAD ---
Right lower extremity venous ultrasound, 03/12/2017 : History: Right leg swelling Duplex evaluation including grayscale, color flow and spectral Doppler analysis was performed. The femoral and popliteal veins show no filling defects to suggest DVT. The visualized deep veins in the right calf are unremarkable. IMPRESSION: There is no sonographic evidence of deep vein thrombosis in the right lower extremity
[2017-03-12 11:22] LABS: BILIRUBIN,URINE NEGATIVE (NEG); GLUCOSE,URINE NEGATIVE (NEG); NITRITE,URINE NEGATIVE (NEG); PH,URINE 7.5; PROTEIN,URINE NEGATIVE (NEG-TRACE); UROBILINOGEN,URINE 0.2 mg/dL (0.2 mg/dL)
[2017-03-12 11:33] LABS: BASO # 0.1 x10^3/uL (0.0-0.2); BASO % 1 % (0-3); EOS % 3 % (0-3); HEMATOCRIT 41.1 % (36.0-47.0); LYMPH % 35 % (24-48); MEAN CORPUSCULAR HEMOGLOBIN 30 pg (25-35); MEAN CORPUSCULAR HGB CONC 34 g/dL (31-37); MEAN CORPUSCULAR VOLUME 88 fL (79-100); MONO % 9 % (0-9); NEUT % 52 % (31-73); PLATELET COUNT 212 x10^3/uL (140-400); RED BLOOD COUNT 4.69 x10^6/uL (3.50-5.40); RED CELL DISTRIBUTION WIDTH 13.5 % (11.5-14.5); WHITE BLOOD COUNT 5.7 x10^3/uL (4.0-11.0)
[2017-03-12 11:40] LABS: CALCIUM 8.6 mg/dL (8.5-10.1); CREATININE 1.4 mg/dL (0.6-1.0); GFR 35.7; POTASSIUM 4.2 mmol/L (3.5-5.1)
[2017-03-12 11:46] LABS: BACTERIA,URINE FEW /HPF (0-FEW); RBC,URINE OCC /HPF (0-2); SQUAMOUS EPITHELIAL CELL,UR FEW /LPF
[2017-03-12 11:46] LABS: ALBUMIN 3.7 g/dL (3.4-5.0); ALBUMIN/GLOBULIN RATIO 1.2 (1.0-1.7); TOTAL BILIRUBIN 0.3 mg/dL (0.2-1.0); TOTAL PROTEIN 6.7 g/dL (6.4-8.2)
[2017-03-12 13:00] VITALS: BP 154/69
[2017-03-12] MEDS ORDERED: PRED50TA PO (13:09)
[2017-03-12] MEDS ORDERED: predniSONE 10 MG TABLET PO ONE (13:15)
== END 2017-03-12 13:25 | disposition home or self-care (01) ==
LOC: ER 09:56
DX: M25.561 Pain in right knee (principal); E78.00 Pure hypercholesterolemia, unspecified; I10 Essential (primary) hypertension; M19.90 Unspecified osteoarthritis, unspecified site; Z90.710 Acquired absence of both cervix and uterus; Z96.651 Presence of right artificial knee joint; Z88.6 Allergy status to analgesic agent
CPT/HCPCS: 36415; 80053; 81001; 83880; 85027; 93971; 99285; J7512

== ENCOUNTER → 2017-03-22 | Outpatient (CLI) | payer MEDICARE, MEDICAID ==
[2017-03-12 13:00] VITALS: BP 154/69
[~2017-03-22] MED LIST changes: +PRED50TA PO
--- NOTE | 2017-03-23 12:58 | EEG ---
DATE OF SERVICE: 03/22/2017 This is EEG number [id number], performed on 03/22/2017. OBJECTIVE: The patient is an 87-year-old female with a history of 2 seizures in her life. DESCRIPTION: This is a digital study. Electrodes are placed according to the international 10-20 system. Bipolar and referential montages are available. Activation procedures typically include hyperventilation and intermittent photic stimulation. INTERPRETATION: The waking background consists of 9-10 Hz, 50-100 microvolt activity, symmetrically distributed over parietooccipital regions and reactive to eye opening. Hyperventilation and intermittent photic stimulation are noncontributory. Stage I sleep is achieved with normal electroencephalogram patterns. IMPRESSION: This electroencephalogram with the patient awake and asleep is within normal limits. There is no focal, paroxysmal, or epileptiform activity. Thank you for letting us help with the patient's care. LOI TORRES MD DR: ALEISHA/adamaris JOB#: [id number] / [id number] [facility] Deangelo [facility]
== END | disposition home or self-care (01) ==
LOC: RT 03-20 12:02
PROVIDERS: ATTEND Psychiatry & Neurology Neurology with Special Qualifications in Child Neurology
DX: G40.89 Other seizures (principal); R06.4 Hyperventilation
CPT/HCPCS: 95816

== ENCOUNTER → 2017-04-19 | Outpatient (CLI) | payer MEDICARE, MEDICAID ==
[~2017-04-19] MED LIST changes: +METO-247 PO; -METO100T11 PO
--- NOTE | 2017-04-19 16:12 | RAD ---
APPROVED REPORT Patient Location : OUT-PATIENT Indications Lower Extremity Edema : Bilateral Findings Limited grayscale images of the bilateral greater and lesser saphenous veins as well as the saphenofe moral junctions do not reveal any evidence of thrombus. The right great saphenous vein measures 4 mm and has no evidence of reflux. The right lesser saphenou s vein measures 0.5 cm and has no evidence of reflux. The left great saphenous vein measures 3 mm and has no evidence of reflux. The left lesser saphenous vein measures 0.2 cm and has no evidence of ref lux. Technically difficult study due to the patient's inability to perform a Valsalva maneuver. Critical Notification Critical Value: No <Conclusion> 1. No evidence of reflux in the bilateral greater and lesser saphenous veins.
== END | disposition home or self-care (01) ==
LOC: US 09:00
PROVIDERS: ATTEND Internal Medicine Cardiovascular Disease
DX: R60.0 Localized edema (principal)
CPT/HCPCS: 93970

== ENCOUNTER → 2017-04-30 | Outpatient (CLI) | payer MEDICARE, MEDICAID ==
--- NOTE | 2017-04-30 10:00 | CARD ---
APPROVED REPORT EXAM: Two-dimensional and M-mode echocardiogram with Doppler and color Doppler. Other Information Quality : GoodHR: 54bpm Rhythm : Bradycardia INDICATION Lower extremity edema RISK FACTORS Hypertension Hyperlipidemia 2D DIMENSIONS RVDd3.1 (2.9-3.5cm)Left Atrium(2D)3.6 (1.6-4.0cm) IVSd1.2 (0.7-1.1cm)Aortic Root(2D)2.6 (2.0-3.7cm) LVDd4.7 (3.9-5.9cm)LVOT Diameter2.4 (1.8-2.4cm) PWd1.2 (0.7-1.1cm)LVDs3.1 (2.5-4.0cm) FS (%) 34.2 %SV64.0 ml LVEF(%)63.2 (>50%) Aortic Valve AoV Peak Nikita.104.2cm/sAoV VTI29.1cm AO Peak GR.4.3mmHgLVOT Peak Nikita.98.0cm/s AO Mean GR.3mmHgAVA (VMAX)4.10cm2 Mitral Valve MV E Xmtkatko65.0cm/sMV DECEL [id number] MV A Xktcskaf180.6cm/sE/A Ratio0.9 MV A [id number] Pulmonary Valve PV Peak Dyytmnbj73.8cm/s Tricuspid Valve TR P. Ovnhyvft756me/sTR Peak Gr.31mmHg Pulmonary Vein S1 Garsvttq10.8cm/sD2 Rpkkulbc95.4cm/s PVa [id number] LEFT VENTRICLE The left ventricle is normal size. There is mild concentric left ventricular hypertrophy. The left ve ntricular systolic function is normal and the ejection fraction is within normal range. The Ejection Fraction is 60-65%. There is normal LV segmental wall motion. Transmitral Doppler flow pattern is Gra de I-abnormal relaxation pattern. RIGHT VENTRICLE The right ventricle is normal size. There is normal right ventricular wall thickness. The right ventr icular systolic function is normal. ATRIA The left atrium is mildly dilated. The right atrium size is normal. The interatrial septum is intact with no evidence for an atrial septal defect or patent foramen ovale as noted on 2-D or Doppler imagi ng. AORTIC VALVE The aortic valve is mildly sclerotic. The aortic valve is trileaflet. Doppler and Color Flow revealed trace aortic regurgitation. There is no significant aortic valvular stenosis. MITRAL VALVE Mitral annular calcification is mild. The mitral valve leaflets are moderately thickened. There is no evidence of mitral valve prolapse. There is no mitral valve stenosis. Doppler and Color Flow reveale d trace to mild mitral regurgitation. TRICUSPID VALVE Doppler and Color Flow revealed mild tricuspid regurgitation. The pulmonary artery systolic pressure is estimated at 34 mmHg. PULMONIC VALVE The pulmonary valve is not well visualized but appears to open adequately. Doppler and Color Flow rev ealed mild pulmonic valvular regurgitation. There is no pulmonic valvular stenosis by spectral Dopple r. GREAT VESSELS The aortic root is normal in size. The ascending aorta is normal in size. The IVC is normal in size a nd collapses >50% with inspiration. PERICARDIAL EFFUSION There is no evidence of significant pericardial effusion. Critical Notification Critical Value: No <Conclusion> The left ventricular systolic function is normal and the ejection fraction is within normal range. Th e Ejection Fraction is 60-65%. There is normal LV segmental wall motion. Doppler and Color Flow revealed mild tricuspid regurgitation. The pulmonary artery systolic pressure is estimated at 34 mmHg.
== END | disposition home or self-care (01) ==
LOC: ECHO 07:44
PROVIDERS: ATTEND Internal Medicine Cardiovascular Disease
DX: I07.1 Rheumatic tricuspid insufficiency (principal); I10 Essential (primary) hypertension; E78.5 Hyperlipidemia, unspecified; R60.0 Localized edema
CPT/HCPCS: 93306

== ENCOUNTER → 2018-01-10 | Outpatient (CLI) | payer MEDICARE, MEDICAID | END | disposition home or self-care (01) | LOC: KCIC MRI 10:28 | DX: M51.36 Other intervertebral disc degeneration, lumbar region (principal); M43.17 Spondylolisthesis, lumbosacral region; M25.78 Osteophyte, vertebrae; M41.86 Other forms of scoliosis, lumbar region | CPT/HCPCS: 72148 ==

== ENCOUNTER → 2018-02-04 | Outpatient (CLI) | payer MEDICARE, MEDICAID | END | disposition home or self-care (01) | LOC: RT 11:55 | DX: G47.33 Obstructive sleep apnea (adult) (pediatric) (principal); I12.9 Hypertensive chronic kidney disease with stage 1 through stage 4 chronic kidney disease, or unspecified chronic kidney disease; N18.3 Chronic kidney disease, stage 3 (moderate); E78.5 Hyperlipidemia, unspecified; E78.00 Pure hypercholesterolemia, unspecified | CPT/HCPCS: G0399 ==

== ENCOUNTER → 2018-03-11 | Outpatient (CLI) | payer MEDICARE, MEDICAID | END | disposition home or self-care (01) | LOC: PNCL 10:55 | DX: M54.5 Low back pain (principal); M79.605 Pain in left leg; I10 Essential (primary) hypertension; N28.89 Other specified disorders of kidney and ureter; M13.88 Other specified arthritis, other site | CPT/HCPCS: G0463 ==

== ENCOUNTER 2019-06-10 03:05 | Emergency (ER) | payer MEDICARE, MEDICAID ==
[~2019-06-10] VITALS: Ht 152.4 cm; Wt 72.6 kg
[~2019-06-10 03:05] MED LIST changes: -AMLO1CAP12 PO; +AMLO1CAP13 PO; -AMLO1CAP15 PO; +AMLO1CAP54 PO; +AMLO5TAB10 PO; -AMLO5TAB2 PO; -FENO145T2 PO; +FENO145T30 PO; +LISI-338 PO; +MAGN400O7 PO; +TRIA1TAB3 PO
[2019-06-10] MEDS: MORPHINE SULFATE 4 MG/ML VIAL. IV/SQ PRN ×2 (03:34→05:31)
[2019-06-10] MEDS ORDERED: ONDANSETRON PF 4 MG/2 ML VIAL. IV ONE (04:00)
--- NOTE | 2019-06-10 04:07 | PHYS DOC ---
Past Medical History Past Medical History: Hypertension, Seizure Additional Past Medical Histor: bursitis L hip, carpal tunnel, Hepatitis A -(40 -50 yrs ago) Past Surgical History: Knee Replacement Additional Past Surgical Histo: R knee surgery x2,R)salivary gland removed Alcohol Use: None Drug Use: None Adult General Chief Complaint Chief Complaint: LOWER EXTREMITY SWELLING HPI HPI Patient is a 89 year old female who presents to the ED with a chief complaint of left lower extremity tenderness. Patient has complains of nausea that started earlier tonight. Family states that they will not eat last night and I'm not sure if that is the cause of her nausea. Patient denies vomiting. Patient states that she recently had knee replacement on the right lower extremity. Patient states that she has not been able to sleep last night secondary to pain in her lower extremities. Review of Systems Review of Systems Constitutional: Denies fever or chills [] HENT: Denies nasal congestion or sore throat [] Respiratory: Denies cough or shortness of breath [] Cardiovascular: Denies chest pain GI: Pains of nausea but no vomiting : Denies dysuria or hematuria [] Musculoskeletal: Complains of pain and swelling in the left lower extremity. Neurologic: Denies headache, focal weakness or sensory changes [] All other systems were reviewed and found to be within normal limits, except as documented in this note. Current Medications Current Medications Current Medications Medications (Trade) Dose Ordered Sig/Sunny Start Time Stop Time Status Last Admin Dose Admin Morphine Sulfate (Morphine Sulfate) 4 mg PRN Q15MIN PRN 06/10/19 03:30 06/11/19 03:29 06/10/19 05:31 4 MG Ondansetron HCl (Zofran) 4 mg 1X ONCE 06/10/19 04:00 06/10/19 04:01 DC 06/10/19 03:34 4 MG Sodium Chloride 1,000 ml @ 1,000 mls/hr 1X ONCE 06/10/19 05:30 06/10/19 06:29 06/10/19 05:30 1,000 MLS/HR Allergies Allergies Allergies Coded Allergies Type Severity Reaction Last Updated Verified No Known Drug Allergies 01/24/18 No Physical Exam Physical Exam Constitutional: Well developed, well nourished, no acute distress, non-toxic appearance. [] HENT: Normocephalic, atraumatic Eyes: PERRLA, EOMI, conjunctiva normal, no discharge. [] Neck: Normal range of motion, no tenderness, supple Cardiovascular:Heart rate regular rhythm, no murmur [] Lungs & Thorax: Bilateral breath sounds clear to auscultation [] Abdomen: Bowel sounds normal, soft, no tenderness Back: No tenderness, no CVA tenderness. [] Extremities: Tenderness, swelling, and the left lower extremity. Vascularly intact Neurologic: Alert and oriented X 3 Current Patient Data Vital Signs Vital Signs Date Time Temp Pulse Resp B/P (MAP) Pulse Ox O2 Delivery O2 Flow Rate FiO2 06/10/19 05:31 18 95 06/10/19 04:29 77 164/70 (101) Room Air 06/10/19 03:20 97.9 97.9 Lab Values Laboratory Tests Test 06/10/19 03:50 06/10/19 04:20 White Blood Count 8.4 x10^3/uL (4.0-11.0) Red Blood Count 4.79 x10^6/uL (3.50-5.40) Hemoglobin 14.3 g/dL (12.0-15.5) Hematocrit 43.3 % (36.0-47.0) Mean Corpuscular Volume 90 fL (79-100) Mean Corpuscular Hemoglobin 30 pg (25-35) Mean Corpuscular Hemoglobin Concent 33 g/dL (31-37) Red Cell Distribution Width 12.9 % (11.5-14.5) Platelet Count 199 x10^3/uL (140-400) Neutrophils (%) (Auto) 62 % (31-73) Lymphocytes (%) (Auto) 28 % (24-48) Monocytes (%) (Auto) 7 % (0-9) Eosinophils (%) (Auto) 2 % (0-3) Basophils (%) (Auto) 1 % (0-3) Neutrophils # (Auto) 5.2 x10^3/uL (1.8-7.7) Lymphocytes # (Auto) 2.4 x10^3/uL (1.0-4.8) Monocytes # (Auto) 0.6 x10^3/uL (0.0-1.1) Eosinophils # (Auto) 0.2 x10^3/uL (0.0-0.7) Basophils # (Auto) 0.1 x10^3/uL (0.0-0.2) Prothrombin Time 12.8 SEC (11.7-14.0) Prothrombin Time INR 1.0 (0.8-1.1) Sodium Level 142 mmol/L (136-145) Potassium Level 4.0 mmol/L (3.5-5.1) Chloride Level 106 mmol/L (98-107) Carbon Dioxide Level 26 mmol/L (21-32) Anion Gap 10 (6-14) Blood Urea Nitrogen 68 mg/dL (7-20) H Creatinine 2.3 mg/dL (0.6-1.0) H Estimated GFR (Cockcroft-Gault) 20.1 BUN/Creatinine Ratio 30 (6-20) H Glucose Level 116 mg/dL (70-99) H Calcium Level 9.4 mg/dL (8.5-10.1) Total Bilirubin 0.3 mg/dL (0.2-1.0) Aspartate Amino Transferase (AST) 23 U/L (15-37) Alanine Aminotransferase (ALT) 25 U/L (14-59) Alkaline Phosphatase 35 U/L (46-116) L Troponin I Quantitative < 0.017 ng/mL (0.000-0.055) Total Protein 7.1 g/dL (6.4-8.2) Albumin 3.9 g/dL (3.4-5.0) Albumin/Globulin Ratio 1.2 (1.0-1.7) Lipase 209 U/L (73-393) Urine Collection Type Unknown Urine Color Yellow Urine Clarity Clear Urine pH 5.5 Urine Specific [place] 1.010 Urine Protein Negative mg/dL (NEG-TRACE) Urine Glucose (UA) Negative mg/dL (NEG) Urine Ketones (Stick) Negative mg/dL (NEG) Urine Blood Negative (NEG) Urine Nitrite Negative (NEG) Urine Bilirubin Negative (NEG) Urine Urobilinogen Dipstick 0.2 mg/dL (0.2 mg/dL) Urine Leukocyte Esterase Negative (NEG) Urine RBC 0 /HPF (0-2) Urine WBC 1-4 /HPF (0-4) Urine Squamous Epithelial Cells Mod /LPF Urine Bacteria Few /HPF (0-FEW) Urine Mucus Slight /LPF Laboratory Tests 06/10/19 03:50 Laboratory Tests 06/10/19 03:50 EKG EKG EKG interpretation: HR: 77 Sinus rhythm Regular intervals Normal axis Nonspecific ST changes Radiology/Procedures Radiology/Procedures Ordered ultrasound of the left lower extremity for DVT. Impressions: Ultrasound is negative for DVT in the left lower extremity Course & Med Decision Making Course & Med Decision Making Pertinent Labs and Imaging studies reviewed. (See chart for details) Ordered ultrasound of the left lower extremity. Ordered labs. Also ordered IV pain medication. Labs are within normal limits except creatinine which is 2.3. Previous creatinine 2018 was 1.6. Family states that this is chronic and not acute. Patient states that she's been taking tramadol since 2009 for pain in her lower extremities. I have given patient 1 L IV fluids. Patient also given a repeat pain medication. I offered admission for acute kidney injury with patient states that this is chronic and that she was to go home. Patient states that she'll follow up with her PCP in the next 1-2 days. Patient states that she is comfortable to go home and follow up as an outpa tient. Family is in the room for this discussion. Discussed results and plan of care with patient. Patient is instructed to follow up with PCP in one to 2 days. Appropriate discharge instructions given to patient to return to the ED or to seek immediate medical evaluation. Patient is instructed to return to the ED if symptoms worsen or if any concerns. Dragon Disclaimer Dragon Disclaimer This electronic medical record was generated, in whole or in part, using a voice recognition dictation system. Departure Departure Impression: Primary Impression: Knee pain Additional Impressions: Renal insufficiency Nausea Disposition: 01 HOME, SELF-CARE Condition: GUARDED Referrals: SHANNAN JIMENEZ MD (PCP) Patient Instructions: Chronic Renal Insufficiency, Knee Pain, Nausea, Adult Additional Instructions: Discussed results and plan of care with patient. Patient is instructed to follow up with PCP in one to 2 days. Appropriate discharge instructions given to patient to return to the ED or to seek immediate medical evaluation. Patient is instructed to return to the ED if symptoms worsen or if any concerns. Scripts Hydrocodone/Apap 5-325 (NORCO 5-325 TABLET) 1 Each Tablet 1 EACH PO PRN Q6HRS PRN for PAIN, #15 as needed for pain Prov: ALEX GAMING DO 06/10/19 Problem Qualifiers ALEX GAMING DO Jun 10, 2019 04:07
[2019-06-10 04:26] LABS: PROTHROMBIN TIME PATIENT 12.8 SEC (11.7-14.0)
[2019-06-10 04:29] VITALS: BP 164/70
[2019-06-10 04:29] LABS: BASO # 0.1 x10^3/uL (0.0-0.2); BASO % 1 % (0-3); EOS # 0.2 x10^3/uL (0.0-0.7); EOS % 2 % (0-3); HEMATOCRIT 43.3 % (36.0-47.0); HEMOGLOBIN 14.3 g/dL (12.0-15.5); LYMPH # 2.4 x10^3/uL (1.0-4.8); LYMPH % 28 % (24-48); MEAN CORPUSCULAR HEMOGLOBIN 30 pg (25-35); MEAN CORPUSCULAR HGB CONC 33 g/dL (31-37); MEAN CORPUSCULAR VOLUME 90 fL (79-100); MONO # 0.6 x10^3/uL (0.0-1.1); MONO % 7 % (0-9); NEUT # 5.2 x10^3/uL (1.8-7.7); NEUT % 62 % (31-73); PLATELET COUNT 199 x10^3/uL (140-400); RED BLOOD COUNT 4.79 x10^6/uL (3.50-5.40); RED CELL DISTRIBUTION WIDTH 12.9 % (11.5-14.5); WHITE BLOOD COUNT 8.4 x10^3/uL (4.0-11.0)
[2019-06-10 04:31] LABS: CALCIUM 9.4 mg/dL (8.5-10.1); CREATININE 2.3 mg/dL (0.6-1.0); GFR 20.1
--- NOTE | 2019-06-10 04:31 | RAD ---
Left Lower Extremity Venous Doppler Ultrasound History: Left lower extremity edema Comparison: None Procedure: Color flow, duplex, spectral analysis and 2D images are obtained with and without compression in the area of the common femoral vein, superficial femoral vein - femoral vein junction, main femoral vein (superficial femoral vein) and popliteal vein. Veins of the proximal calf are also imaged. Findings: There is normal duplex flow, color flow and compressibility of all visualized vein segments. No evidence of deep venous thrombus is present. There is diffuse soft tissue edema. Impression: No evidence of DVT. Electronically signed by: Fernando Tinajero III, MD (06/10/2019 4:28 AM) [id number]
[2019-06-10 04:32] LABS: BILIRUBIN,URINE NEGATIVE (NEG); CLARITY,URINE CLEAR; COLOR,URINE YELLOW; NITRITE,URINE NEGATIVE (NEG); PH,URINE 5.5; PROTEIN,URINE NEGATIVE (NEG-TRACE); UROBILINOGEN,URINE 0.2 mg/dL (0.2 mg/dL)
[2019-06-10 04:37] LABS: ALBUMIN 3.9 g/dL (3.4-5.0); ALBUMIN/GLOBULIN RATIO 1.2 (1.0-1.7); TOTAL BILIRUBIN 0.3 mg/dL (0.2-1.0); TOTAL PROTEIN 7.1 g/dL (6.4-8.2)
[2019-06-10 04:38] LABS: SQUAMOUS EPITHELIAL CELL,UR MOD /LPF
[2019-06-10 04:39] LABS: BACTERIA,URINE FEW /HPF (0-FEW); RBC,URINE 0 /HPF (0-2)
[2019-06-10] MEDS ORDERED: IV NORMAL SALINE 1000ML BAG 1,000 ML IV ONE (05:30)
[2019-06-10] MEDS ORDERED: HYDR-3164 PO (05:45)
--- NOTE | 2019-06-10 06:05 | EKG ---
[facility] [address] [place] [address] Test Date: 2019-06-10 Test Time: 03:36:03 Pat Name: ALKA WEAVER Department: Room: Gender: F Teletypewriter Operator: : 1930 Requested By: ALEX GAMING Order Number: [id number] Reading MD: Measurements Intervals [place] Rate: 77 P: 6 IN: 220 QRS: -6 QRSD: 84 T: 35 QT: 372 QTc: 423 Interpretive Statements SINUS RHYTHM PROLONGED IN INTERVAL LEFTWARD AXIS ABNORMAL ECG RI6.01 No previous ECG available for comparison
== END 2019-06-10 06:30 | disposition home or self-care (01) ==
LOC: ER 03:05
DX: M25.562 Pain in left knee (principal); N28.9 Disorder of kidney and ureter, unspecified; R11.0 Nausea; I10 Essential (primary) hypertension; R94.31 Abnormal electrocardiogram [ECG] [EKG]; Z96.651 Presence of right artificial knee joint
CPT/HCPCS: 36415; 80053; 81001; 83690; 84484; 85025; 85610; 93005; 93971; 96374; 96375; 96376; 99285; J2270; J2405; J7030; 96361